=== PATIENT | male | born 1990 | race Caucasian/White ===

== ENCOUNTER 2018-01-31 13:03 | Emergency (ER) | payer OTHER ==
[~2018-01-31] VITALS: Ht 172.7 cm; Wt 74.5 kg
[~2018-01-31 13:03] MED LIST: IBUPROFEN 800800 MG PO; INDOMETHACIN 5050 MG PO; PHENERGAN 25 MG25 M1 PO
[2018-01-31 13:53] LABS: ABSOLUTE BASOPHILS 0.1 thou/uL (0.0-0.2); ABSOLUTE EOSINOPHILS 0.3 thou/uL (0.0-0.7); ABSOLUTE LYMPHOCYTES 2.8 thou/uL (0.8-5.3); ABSOLUTE MONOCYTES 0.6 thou/uL (0.0-1.2); ABSOLUTE NEUTROPHILS 4.6 thou/uL (1.6-8.1); BASOPHILS 0.8 %; EOSINOPHILS 3.2 %; HEMATOCRIT 44.3 % (42.0-52.0); HEMOGLOBIN 15.1 gm/dL (14.0-18.0); LYMPHOCYTES 33.8 %; MCH 31.6 pg (26.0-34.0); MCHC 34.2 g/dL (28.0-37.0); MCV 92.6 fL (80.0-100.0); MONOCYTES 6.8 %; MPV 8.3 fl. (7.2-11.1); NUCLEATED RBCS 0 /100WBC; PLATELET COUNT* 227 thou/uL (150-400); POLYS 55.4 %; RBC 4.78 mil/uL (4.50-6.00); RDW-CV 13.7 % (10.5-14.5); WBC 8.2 thou/uL (4.0-11.0)
[2018-01-31 14:04] LABS: CALCIUM 8.5 mg/dL (8.5-10.1); CREATININE 0.8 mg/dL (0.6-1.3); POTASSIUM 3.7 mmol/L (3.5-5.1)
[2018-01-31 14:08] LABS: ALBUMIN 4.4 g/dL (3.4-5.0); TOTAL BILIRUBIN 0.2 mg/dL (<0.1-1.0); TOTAL PROTEIN 7.7 g/dL (6.4-8.2)
[2018-01-31 14:54] LABS: URINE BILIRUBIN NEGATIVE (Negative); URINE BLOOD NEGATIVE (Negative); URINE CLARITY CLEAR; URINE COLOR YELLOW; URINE GLUCOSE-RANDOM NEGATIVE (Negative); URINE KETONES NEGATIVE (Negative); URINE LEUKOCYTES-REFLEX NEGATIVE (Negative); URINE NITRITE-REFLEX NEGATIVE (Negative); URINE PROTEIN NEGATIVE (Negative); URINE SPECIFIC GRAVITY 1.015 (1.005-1.030); URINE UROBILINOGEN 0.2 E.U./dl (0.2-1.0)
[2018-01-31] MEDS ORDERED: ROBAXIN500 MG PO (15:01)
[2018-01-31 15:12] VITALS: BP 137/75
== END 2018-01-31 15:12 | disposition home or self-care (01) ==
LOC: M.ERS 13:03
PROVIDERS: Nurse Practitioner Family
DX: S39.012A Strain of muscle, fascia and tendon of lower back, initial encounter (principal); R10.9 Unspecified abdominal pain; R19.7 Diarrhea, unspecified; K21.9 Gastro-esophageal reflux disease without esophagitis; F17.210 Nicotine dependence, cigarettes, uncomplicated; W10.8XXA Fall (on) (from) other stairs and steps, initial encounter; Y93.89 Activity, other specified; Y92.89 Other specified places as the place of occurrence of the external cause; Y99.8 Other external cause status

== ENCOUNTER 2018-03-08 06:59 | Emergency (ER) | payer OTHER ==
[~2018-03-08] VITALS: Ht 175.3 cm; Wt 70.3 kg
[~2018-03-08 06:59] MED LIST changes: +ROBAXIN500 MG PO
[2018-03-08 07:15] VITALS: BP 138/75
[2018-03-08] MEDS ORDERED: MEDROLDOSEPACK PO (07:23)
[2018-03-08] MEDS ORDERED: ROBAXIN 750 MG750 MG PO (07:23)
== END 2018-03-08 07:30 | disposition home or self-care (01) ==
LOC: M.ERS 06:59
DX: M54.5 Low back pain (principal); K21.9 Gastro-esophageal reflux disease without esophagitis; G89.29 Other chronic pain; F17.210 Nicotine dependence, cigarettes, uncomplicated

== ENCOUNTER 2018-04-01 08:11 | Emergency (ER) | payer OTHER ==
[~2018-04-01] VITALS: Ht 175.3 cm; Wt 74.8 kg
[~2018-04-01 08:11] MED LIST changes: +MEDROLDOSEPACK PO; +ROBAXIN 750 MG750 MG PO
[2018-04-01] MEDS ORDERED: FLEXERIL PO (08:30)
[2018-04-01] MEDS ORDERED: ULTRAM 50MG TAB50 MG PO (08:30)
[2018-04-01 08:36] VITALS: BP 134/60
== END 2018-04-01 08:36 | disposition home or self-care (01) ==
LOC: M.ERS 08:11
DX: M54.5 Low back pain (principal); K21.9 Gastro-esophageal reflux disease without esophagitis; G89.29 Other chronic pain; F17.210 Nicotine dependence, cigarettes, uncomplicated

== ENCOUNTER 2021-02-12 07:58 | Emergency (ER) | payer OTHER ==
[~2021-02-12] VITALS: Ht 177.8 cm; Wt 74.8 kg
[~2021-02-12 07:58] MED LIST changes: +FLEXERIL PO; +ULTRAM 50MG TAB50 MG PO
[2021-02-12 10:24] LABS: CALCIUM 9.1 mg/dL (8.5-10.1); CREATININE 0.8 mg/dL (0.6-1.3); POTASSIUM 4.9 mmol/L (3.5-5.1)
[2021-02-12] MEDS ORDERED: VENTOLIN HFA 1818 GM INH (11:06)
[2021-02-12] MEDS ORDERED: PREDNISONE50 MG PO (11:06)
[2021-02-12 11:14] VITALS: BP 124/80
== END 2021-02-12 11:15 | disposition home or self-care (01) ==
LOC: M.ERS 07:58
PROVIDERS: Emergency Medicine Emergency Medical Services
DX: G44.009 Cluster headache syndrome, unspecified, not intractable (principal); K21.9 Gastro-esophageal reflux disease without esophagitis; F17.210 Nicotine dependence, cigarettes, uncomplicated